=== PATIENT | male | born 1995 | race Caucasian/White ===

== ENCOUNTER 2018-01-01 00:08 | Emergency (ER) | payer SELFPAY ==
[~2018-01-01] VITALS: Ht 172.7 cm; Wt 145.1 kg
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
--- NOTE | 2018-01-01 00:45 | NUR ---
[facility]AMP[facility] REYES AT BEDSIDE.
[2018-01-01] MEDS ORDERED: ONDANSETRON 4 MG/2 ML VIAL ONE (00:55)
[2018-01-01] MEDS: IV NS 1000 ML 1,000 ML IV ONE (01:06)
[2018-01-01] MEDS: ONDANSETRON IV *ER 4 MG/2 ML VIAL IV ONE (01:07)
--- NOTE | 2018-01-01 01:09 | NUR ---
PT TAKEN TO RAD FOR CT SCAN BY [employer]INEER.
[2018-01-01 01:10] LABS: BASOPHILS # (AUTO) 0.1 K/uL (0.0-8.0); BASOPHILS % (AUTO) 0.8 % (0.0-2.0); EOSINOPHILS # (AUTO) 0.3 K/uL (0.0-0.7); EOSINOPHILS % (AUTO) 2.4 % (0.0-7.0); HEMATOCRIT 42.3 % (36.7-47.1); HEMOGLOBIN 14.5 g/dL (12.5-16.3); LYMPHOCYTES # (AUTO) 3.2 K/uL (20.0-40.0); LYMPHOCYTES % (AUTO) 28.6 % (20.5-51.5); MEAN CORPUSCULAR HEMOGLOBIN 29.2 uug (23.8-33.4); MEAN CORPUSCULAR HGB CONC 34 g/dL (32.5-36.3); MEAN CORPUSCULAR VOLUME 85.3 fL (73.0-96.2); MONOCYTES # (AUTO) 0.9 K/uL (2.0-10.0); NEUTROPHILS # (AUTO) 6.8 K/uL (1.8-8.9); NEUTROPHILS % (AUTO) 60.2 % (38.5-71.5); PLATELET COUNT (AUTO) 279 K/uL (152-348); RED BLOOD CELL COUNT(AUTO) 4.96 MIL/uL (4.06-5.63); WHITE BLOOD COUNT (AUTO) 11.3 K/uL (3.6-10.2)
--- NOTE | 2018-01-01 01:11 | NUR ---
Patient taken to CT via gurney with transporter/RN
--- NOTE | 2018-01-01 01:25 | NUR ---
PT BACK IN ER FROM CT SCAN. PT IN BED, NO SIGNS OF ACUTE DISTRESS AT THIS TIME.
[2018-01-01 01:28] LABS: BILIRUBIN,TOTAL 0.4 mg/dL (0.2-1.0)
--- NOTE | 2018-01-01 02:05 | NUR ---
Patient back from CT. no acute distress noted. VSS
--- NOTE | 2018-01-01 02:20 | NUR ---
C-spine cleared by ER MD, C-collar removed at this time. ER MD at bedside for patient update. All questions/concerns attended and answered by ER MD.
[2018-01-01] MEDS ORDERED: CEFTRIAXONE 1 G VIAL ONE (02:33)
[2018-01-01] MEDS: CEFTRIAXONE 1 G in IV DEXTROSE 5% 50 ML IV ONE (02:40)
--- NOTE | 2018-01-01 02:53 | NUR ---
Patient discharged to home in stable conditon. Written and verbal after care instructions given. Patient verbalizes understanding of instructions. Ambulated from ER with stable gait. All belongings with patient. Peripheral IV removed prior to d/c.
[2018-01-01 02:55] VITALS: BP 134/81
== END 2018-01-01 02:55 | disposition home or self-care (01) ==
LOC: ER 00:13
DX: S16.1XXA Strain of muscle, fascia and tendon at neck level, initial encounter (principal); L03.221 Cellulitis of neck; I10 Essential (primary) hypertension; V49.69XA Unspecified car occupant injured in collision with other motor vehicles in traffic accident, initial encounter; Y93.89 Activity, other specified; Y92.410 Unspecified street and highway as the place of occurrence of the external cause; Y99.8 Other external cause status
CPT/HCPCS: 36415; 70450; 71045; 72072; 72125; 73020; 80053; 85025; 96374; 96375; 99285; A4663; J0696; J2405; J7030

== ENCOUNTER 2018-05-28 02:56 | Emergency (ER) | payer BC ==
[~2018-05-28] VITALS: Ht 172.7 cm; Wt 149.7 kg
[2018-05-28] MEDS ORDERED: HYDROMORPHONE 1 MG/1 ML DISP.SYRIN IV ONE ×2 (03:15→05:15)
[2018-05-28] MEDS ORDERED: ONDANSETRON 4 MG/2 ML VIAL IV ONE (03:15)
[2018-05-28] MEDS ORDERED: KETOROLAC TROMETHAMINE 15 MG INJ IV ONE (03:15)
[2018-05-28] MEDS ORDERED: HYDROMORPHONE 1 MG/1 ML DISP.SYRIN ONE ×2 (03:34→05:18)
[2018-05-28] MEDS ORDERED: ONDANSETRON 4 MG/2 ML VIAL ONE (03:34)
[2018-05-28] MEDS ORDERED: KETOROLAC TROMETHAMINE 30 MG INJ ONE (03:34)
--- NOTE | 2018-05-28 03:41 | NUR ---
Pt taken down to CT.
[2018-05-28 03:52] LABS: BASOPHILS # (AUTO) 0.1 K/uL (0.0-8.0); BASOPHILS % (AUTO) 0.6 % (0.0-2.0); EOSINOPHILS # (AUTO) 0.1 K/uL (0.0-0.7); EOSINOPHILS % (AUTO) 1.2 % (0.0-7.0); HEMOGLOBIN 15.2 g/dL (12.5-16.3); LYMPHOCYTES % (AUTO) 24.9 % (20.5-51.5); MEAN CORPUSCULAR HEMOGLOBIN 28.6 uug (23.8-33.4); MEAN CORPUSCULAR HGB CONC 34 g/dL (32.5-36.3); MEAN CORPUSCULAR VOLUME 83.1 fL (73.0-96.2); MONOCYTES # (AUTO) 0.8 K/uL (2.0-10.0); MONOCYTES % (AUTO) 6.8 % (0.0-11.0); NEUTROPHILS # (AUTO) 7.9 K/uL (1.8-8.9); NEUTROPHILS % (AUTO) 66.5 % (38.5-71.5); PLATELET COUNT (AUTO) 267 K/uL (152-348); RED BLOOD CELL COUNT(AUTO) 5.29 MIL/uL (4.06-5.63); WHITE BLOOD COUNT (AUTO) 11.9 K/uL (3.6-10.2)
[2018-05-28 03:53] LABS: *BILIRUBIN,URIN NEGATIVE (NEGATIVE); *BLOOD, URINE NEGATIVE (NEGATIVE); *CLARITY,URINE CLEAR (CLEAR); *COLOR,URINE YELLOW (YELLOW); *KETONES,URINE NEGATIVE (NEGATIVE); LEUKOCYTE ESTERASE ,URINE NEGATIVE (NEGATIVE); NITRITE, URINE NEGATIVE (NEGATIVE); UGLUCOSE NEGATIVE (NEGATIVE)
[2018-05-28 03:55] LABS: CREATININE 0.8 mg/dL (0.6-1.3); POTASSIUM 3.6 mmol/L (3.5-5.1)
[2018-05-28 03:59] LABS: BACTERIA,URINE NONE SEEN /HPF (NONE SEEN); RBC,URINE NONE SEEN /HPF (0-3); SQUAMOUS EPITHELIAL CELL,UR FEW /HPF (NONE SEEN); WBC,URINE 0-3 /HPF (0-3)
--- NOTE | 2018-05-28 04:00 | NUR ---
Pt back in room from CT.
[2018-05-28 04:01] LABS: BILIRUBIN,DIRECT 0.1 mg/dL (0.0-0.2); BILIRUBIN,TOTAL 0.4 mg/dL (0.2-1.0); TOTAL PROTEIN, SERUM 8.4 g/dL (6.4-8.2)
--- NOTE | 2018-05-28 05:28 | NUR ---
IV removed. Catheter intact and site benign. Pressure and 4x4 gauze applied to site. No bleeding noted. Patient discharged to home in stable conditon. Written and verbal after care instructions given. Patient verbalizes understanding of instructions. Patient instructed not to drive.
[2018-05-28 05:29] VITALS: BP 114/84
== END 2018-05-28 05:30 | disposition home or self-care (01) ==
LOC: ER 02:57
DX: M54.5 Low back pain (principal); R10.31 Right lower quadrant pain; E66.9 Obesity, unspecified; Z71.6 Tobacco abuse counseling; I10 Essential (primary) hypertension; F17.290 Nicotine dependence, other tobacco product, uncomplicated
CPT/HCPCS: 36415; 74176; 80048; 80076; 81001; 83690; 85025; 96374; 96375; 96376; 99284; 99406; J1170 ×2; J1885; J2405; A4663